=== PATIENT | female | born 1990 | race Caucasian/White ===

== ENCOUNTER 2017-02-07 08:53 | Emergency (ER) | payer BC ==
[2017-02-07] MEDS ORDERED: LIDOCAINE 1%/EPINEPHRINE INJ 20 ML VIAL INJ ONE (09:46)
--- NOTE | 2017-02-07 09:48 | ER Document Report ---
ED General - General Chief Complaint: Abscess Stated Complaint: POSSIBLE ABSCESS Time seen by provider: 09:46 Mode of Arrival: Ambulatory Information source: Patient Notes: This is a 26-year-old female with no prior medical problems who presents to the emergency room with pain and swelling to the right axilla. Patient denies fever , chills, nausea vomiting. TRAVEL OUTSIDE OF THE [place] IN LAST 30 DAYS: No - HPI Onset: Last week Onset/Duration: Gradual Quality of pain: Dull Severity: Moderate Pain Level: 3 Associated symptoms: denies: Chills, Fever Exacerbated by: Denies Relieved by: Denies Similar symptoms previously: No Recently seen / treated by doctor: No - Related Data Allergies/Adverse Reactions: Penicillins Adverse Reaction (Verified 02/07/17 09:01) Past Medical History - General Information source: Patient - Social History Smoking Status: Current Every Day Smoker Cigarette use (# per day): Yes - half pack per day Chew tobacco use (# tins/day): No Frequency of alcohol use: None Drug Abuse: None Lives with: Family Family History: Reviewed & Not Pertinent Patient has suicidal ideation: No Patient has homicidal ideation: No - Medical History Medical History: Negative Renal/ Medical History: Denies: Hx Peritoneal Dialysis Past Surgical History: Reports: Hx Section - x1 - Immunizations Hx Diphtheria, Pertussis, Tetanus Vaccination: Yes Review of Systems - Review of Systems Constitutional: denies: Chills, Fever EENT: No symptoms reported Cardiovascular: No symptoms reported Respiratory: No symptoms reported Gastrointestinal: No symptoms reported Genitourinary: No symptoms reported Female Genitourinary: No symptoms reported Musculoskeletal: No symptoms reported Skin: See HPI Hematologic/Lymphatic: No symptoms reported Neurological/Psychological: No symptoms reported Physical Exam - Vital signs Vitals: Temp Pulse Resp BP Pulse Ox 98.3 F 110 H 20 145/91 H 97 02/07/17 08:58 02/07/17 08:58 02/07/17 08:58 02/07/17 08:58 02/07/17 08:58 Notes: Physical exam: GENERAL: HEAD: Atraumatic, normocephalic. EYES: Pupils equal round and reactive to light, extraocular movements intact, sclera anicteric, conjunctiva are normal. ENT: TMs normal, nares patent, oropharynx clear without exudates. Moist mucous membranes. NECK: Normal range of motion, supple without lymphadenopathy Axilla: Patient has tender area of erythema and mild fluctuance which appears superficial in the right axilla. There is no overlying cellulitis. LUNGS: Breath sounds clear to auscultation bilaterally and equal. No wheezes rales or rhonchi. HEART: Regular rate and rhythm without murmurs, rubs or gallops. ABDOMEN: Soft, normoactive bowel sounds. No tenderness to palpation. No guarding, no rebound. No masses appreciated. EXTREMITIES: Normal range of motion, no pitting or edema. No clubbing or cyanosis. NEUROLOGICAL: Cranial nerves II through XII grossly intact. Normal speech, normal gait. PSYCH: Normal mood, normal affect. SKIN: Mentioned above under the axilla exam. Course - Vital Signs Vital signs: Temp Pulse Resp BP Pulse Ox 97.6 F 81 16 130/80 H 100 02/07/17 11:34 02/07/17 11:34 02/07/17 11:34 02/07/17 11:34 02/07/17 11:34 Procedures - Incision and Drainage axilla Time completed: 11:08 Type: Simple Anesthetic type: 1% Lidocaine mL's of anesthetic: 4 Blade size: 11 I&D procedure: Betadine prep applied, Chlorprep applied, Iodoform packing placed Incision Method: Incision made by scalpel Amount/type of drainage: blood and pus liberated (small amount) Discharge - Discharge Clinical Impression: hidradenitis, Pre-hypertension Condition: Stable Disposition: HOME, SELF-CARE Instructions: Abscess ([facility]), Oral Narcotic Medication ([facility]), Trimethoprim- Sulfa ([facility]) Additional Instructions: Recommendations: Take the pain medicine as needed. See the narcotic instruction sheet. Take antibiotics as prescribed. Take the nausea medicine as needed. If the packing has not fallen out in the shower after 2 days, return to the emergency room for removal removal of the packing. Alternatively, you can just pull on the end of the packing and it will come out (he will not be significantly painful). You can shower, use Hibiclens soap (served at [facility] and most pharmacies) to clean under it needs armpits. Return to the emergency room for increasing pain, redness, swelling or any concerns he getting worse. Regarding Blood Pressure: Your blood pressure was noted to be greater than 120/80 at least once in the emergency room today. It is recommended that you follow-up with her primary care physician in the next week for repeat blood pressure check. The Centers for Medicare and Medicaid Services has specific recommendations regarding a person's blood pressure. There are several lifestyle modifications that are recommended in order to help lower your blood pressure. These include: Quitting smoking if you smoke. Reducing the amount of sodium in your diet. Getting regular exercise Limiting alcohol to no more than 2 drinks a day for men and one drink a day for women. Eating a healthy diet, including more fruits and vegetables, low fat dairy products, less saturated and total fat. Losing weight if you are overweight. FOLLOW-UP: Call your doctor's office and let them know your blood pressure was elevated and you were advised to get your blood pressure checked in the above time-line. If you are unable to get into your doctor's office in this time period, you can follow-up with a new physician (I have left the numbers below for a few primary care doctors affiliated with this [facility]) or return to the ER. PRIMARY CARE PHYSICIANS: Dr. Serge Schroeder [address], [place] [address] [phone] Dr Maynard Address: [address] , [place] [address] Dr Meyer Address: [address] [place] [address] , [place] [address] The pain medicine you're taking prescribed as a narcotic. There are several important things you should know about this medicine: 1. This medicine contains Tylenol: It is important that you do not take Tylenol (or acetaminophen) while on this medicine. Tylenol is metabolized by the liver and taking too much Tylenol (acetaminophen) can lay to liver damage and even liver failure. 2. Taking narcotics for too long can lead to physical and mental dependence. Take this medicine only if really needed and in the lowest quantity to achieve pain relief. 3. Do not drink alcohol while on this medicine. Alcohol interacts with narcotics and the combination can be dangerous. 4. Do not drive or operate machinery while on this medicine. 5. Narcotics do cause constipation, so drink plenty of fluids and daily stool softeners. Prescriptions: Oxycodone HCl/Acetaminophen [Percocet 5-325 mg Tablet] 1 - 2 tab PO ASDIR PRN # 25 tablet PRN Reason: Promethazine HCl [Phenergan 25 mg Tablet] 25 mg PO Q6H PRN #15 tablet PRN Reason: Sulfamethoxazole/Trimethoprim [Bactrim Ds Tablet] 1 each PO BID #20 tablet Forms: Follow-Up (Wound) Referrals: CELY WATSON MD [Primary Care Provider] - Follow up as needed
[2017-02-07] MEDS ORDERED: LIDOCAINE 1% INJ-PF (10 MG/ML) 30 ML SDV ONE (10:11)
[2017-02-07] MEDS ORDERED: SULFAMETHOXAZOLE/TRIMETHOPRIM 800-160 MG TABLET PO ONE (11:10)
[2017-02-07] MEDS ORDERED: OXYCODONE-ACETAMINOPHEN 5-325 MG TABLET PO ONE (11:10)
[2017-02-07 11:35] VITALS: BP 130/80
== END 2017-02-07 11:35 | disposition home or self-care (01) ==
LOC: ER 08:53
PROC: 0H9BXZZ Drainage of Right Upper Arm Skin, External Approach (ICD-10-PCS; principal; 2017-02-07)
DX: L73.2 Hidradenitis suppurativa (principal); R03.0 Elevated blood-pressure reading, without diagnosis of hypertension; F17.210 Nicotine dependence, cigarettes, uncomplicated; Z88.0 Allergy status to penicillin
CPT/HCPCS: 87070; 87077; 87186; 87205; 99283

== ENCOUNTER 2017-04-17 15:01 | Emergency (ER) | payer BC, OTHER ==
[2017-04-17] MEDS ORDERED: ACETAMINOPHEN 325 MG TABLET PO ONE (16:46)
[2017-04-17] MEDS ORDERED: TRAMADOL HCL 50 MG TABLET PO ONE (17:55)
--- NOTE | 2017-04-17 17:59 | ER Document Report ---
HPI - HPI Patient complains to provider of: fall, left hip pain Onset: This morning Onset/Duration: Sudden Quality of pain: Achy Severity: Severe Pain Level: 5 Associated Symptoms: Weakness Exacerbated by: Movement, Walking Relieved by: Supine Similar symptoms previously: No Recently seen / treated by doctor: No - REPRODUCTIVE Reproductive: DENIES: : - DERM Skin Color: Normal Past Medical History - General Information source: Patient - Social History Smoking Status: Current Every Day Smoker Chew tobacco use (# tins/day): No Frequency of alcohol use: None Drug Abuse: None Family History: Reviewed & Not Pertinent Patient has suicidal ideation: No Patient has homicidal ideation: No Renal/ Medical History: Denies: Hx Peritoneal Dialysis Past Surgical History: Reports: Hx Section - x1 - Immunizations Hx Diphtheria, Pertussis, Tetanus Vaccination: Yes Vertical Provider Document - CONSTITUTIONAL Agree With Documented VS: Yes Exam Limitations: No Limitations General Appearance: WD/WN, No Apparent Distress - INFECTION CONTROL TRAVEL OUTSIDE OF THE [place] IN LAST 30 DAYS: No - HEENT HEENT: Atraumatic, Normal ENT Exam, Normocephalic - NECK Neck: Normal Inspection, Other - full rom. negative: Lymphadenopathy-Left, Lymphadenopathy-Right - RESPIRATORY Respiratory: Breath Sounds Normal, No Respiratory Distress, Chest Non-Tender O2 Sat by Pulse Oximetry: 99 - CARDIOVASCULAR Cardiovascular: Regular Rate, Regular Rhythm, No Murmur Pulses: Normal: Radial, Dorsalis pedis - BACK Back: Normal Inspection Notes: Palpation, process tenderness, deformity, step-offs or ecchymosis - MUSCULOSKELETAL/EXTREMETIES Musculoskeletal/Extremeties: MAEW, Tender - left hip and thigh - NEURO Level of Consciousness: Awake, Alert, Appropriate Motor/Sensory: No Motor Deficit, No Sensory Deficit Course - Re-evaluation Re-evalutation: 04/17/17 20:05 No evidence of fracture on x-ray. Patient able to bear weight. Discharge home. - Vital Signs Vital signs: Temp Pulse Resp BP Pulse Ox 98.1 F 95 20 142/95 H 99 04/17/17 15:07 04/17/17 15:07 04/17/17 15:07 04/17/17 15:07 04/17/17 15:07 - Diagnostic Test Radiology reviewed: Image reviewed, Reports reviewed Discharge - Discharge Clinical Impression: Left hip pain Condition: Good Disposition: HOME, SELF-CARE Additional Instructions: MUSCLE STRAIN: You have strained a muscle -- torn the fibers within the muscle. This often occurs with strenuous exertion, or during an injury that suddenly stretches the muscle. The seriousness of a strain varies. Some strains heal within days, others cause problems for months. X-rays cannot show a muscle strain. X-rays are taken only if symptoms suggest that a fracture could be present. The usual treatment of a muscle strain is rest and ice packs. Sometimes, a sling, splint, or crutches may be necessary to rest the muscle. The muscle can be used again once pain subsides. Severe strains require a special exercise and stretching program to prevent permanent stiffness and disability. Your doctor will advise you if this will be necessary. Call the doctor immediately if pain or swelling becomes severe, or if numbness or discoloration develop. CONTUSION: Your injury has resulted in a contusion -- a crushing of the deep tissues. No injury to important structures was detected during the physician's exam. Contusions vary in the amount of pain they cause, and in the length of time required for healing. Typically, the area will become bruised, and will remain painful to touch for two or three weeks. However, most patients are back to working and playing within a few days. After the initial period of rest and cold-packs, your symptoms (together with the doctor's recommendations) will determine how rapidly you can get back to full activity. Usually this means "do what feels okay, but don't do things that hurt." If re-examination was recommended, it's important to follow up as instructed. Call the doctor or return any time if pain increases, if swelling becomes severe, if you develop numbness or weakness in an injured extremity, or if any other alarming symptoms occur. LOW BACK PAIN: Three out of every four people will have an episode of disabling back pain during their lifetime. Most commonly the pain is due to straining of the muscles and ligaments in the low back. Usual treatment includes: (1) Rest on a firm surface. Avoid lying on your stomach. (2) Ice pack the painful area. After a few days, gentle heat may be used intermittently to relax the area, or ice packs can be continued. (3) Medication may be needed -- muscle relaxers and antiinflammatory medicines are commonly used. (4) As the back improves, exercises are prescribed to strengthen the back and abdominal muscles. Your doctor will advise you on the proper care for your back at each stage in your recovery. You may be better in a few days -- or healing may take several weeks. If new symptoms of a "herniated disc" (radiation of pain, numbness, or tingling down the back of the leg or weakness in the leg) occur, you should be re-examined. Further testing may be necessary. USE OF TYLENOL (ACETAMINOPHEN): Acetaminophen may be taken for pain relief or fever control. It's much safer than aspirin, offering a wider range of "safe" dosages. It is safe during . Some brand names are Tylenol, Panadol, Datril, Anacin 3, Tempra, and Liquiprin. Acetaminophen can be repeated every four hours. The following are maximum recommended dosages: WEIGHT Dose Drops Elixir Chewable( 80mg) (LBS.) drprs=droppers tsp=teaspoon 6 40 mg 0.4 ml (1/2) 6-11 80 mg 0.8 ml (full) tsp 1 tab 12-16 120 mg 1 1/2 drprs 3/4 tsp 1 1/2 tabs 17-23 160 mg 2 drprs 1 tsp 2 tabs 24-30 240 mg 3 drprs 1 1/2 tsp 3 tabs 30-35 320 mg 2 tsp 4 tabs 36-41 360 mg 2 1/4 tsp 4 1/2 tabs 42-47 400 mg 2 1/2 tsp 5 tabs 48-53 480 mg 3 tsp 6 tabs 54-59 520 mg 3 1/4 tsp 6 1/2 tabs 60-64 560 mg 3 1/2 tsp 7 tabs 65-70 600 mg 3 3/4 tsp 7 1/2 tabs 71-76 640 mg 4 tsp 8 tabs 77-82 720 mg 4 1/2 tsp 9 tabs 83-88 800 mg 5 tsp 10 tabs >89 pounds or adults 650 mg to 900 mg Acetaminophen can be repeated every four hours. Maximum dose not to exceed 4000 mg a day. These maximum recommended dosages are slightly higher than the dosages written on the product container, but these dosages are very safe and below the toxic dosage for acetaminophen. FOLLOW-UP CARE: If you have been referred to a physician for follow-up care, call the physician s office for an appointment as you were instructed or within the next two days. If you experience worsening or a significant change in your symptoms, notify the physician immediately or return to the Emergency Department at any time for re-evaluation. Prescriptions: Tramadol HCl 50 mg PO Q6HP PRN #15 tablet PRN Reason: Ibuprofen [Motrin 800 mg Tablet] 800 mg PO Q8H PRN #30 tab PRN Reason: Forms: Elevated Blood Pressure, Return to Work Referrals: [facility] [NO LOCAL MD] - Follow up as needed
[2017-04-17 18:08] VITALS: BP 131/84
== END 2017-04-17 18:20 | disposition home or self-care (01) ==
LOC: ER 15:01
DX: M25.552 Pain in left hip (principal); R53.1 Weakness; F17.200 Nicotine dependence, unspecified, uncomplicated
CPT/HCPCS: 99283

== ENCOUNTER 2017-06-23 13:29 | Emergency (ER) | payer BC ==
[2017-06-23] MEDS ORDERED: FAMOTIDINE 20 MG TABLET PO ONE (14:08)
[2017-06-23] MEDS ORDERED: PREDNISONE 20 MG TABLET PO ONE (14:08)
[2017-06-23] MEDS ORDERED: LORATADINE 10 MG TABLET PO ONE (14:08)
[2017-06-23 14:33] LABS: ABSOLUTE BASOPHILS # (AUTO) 0.1 10^3/uL (0.0-0.2); ABSOLUTE EOSINOPHILS # (AUTO) 0.2 10^3/uL (0.0-0.6); ABSOLUTE LYMPHOCYTES (AUTO) 3.1 10^3/uL (0.5-4.7); ABSOLUTE MONOCYTES (AUTO) 0.7 10^3/uL (0.1-1.4); ABSOLUTE NEUT (AUTO) 6.9 10^3/uL (1.7-8.2); BASOPHILS % (AUTO) 1.2 % (0-2); EOSINOPHILS % (AUTO) 1.8 % (0-6); HEMATOCRIT 40.8 % (36.0-47.0); HEMOGLOBIN 14.1 g/dL (12.0-15.5); HGB HCT DIFFERENCE 1.5; MEAN CORPUSCULAR HEMOGLOBIN 30.2 pg (27.0-33.4); MEAN CORPUSCULAR HGB CONC 34.5 g/dL (32.0-36.0); MEAN CORPUSCULAR VOLUME 87 fl (80-97); MONOCYTES % (AUTO) 6.1 % (3-13); RED BLOOD COUNT 4.66 10^6/uL (3.72-5.28); RED CELL DISTRIBUTION WIDTH 13.3 % (11.5-14.0); SEGMENTED NEUTROPHILS % (AUTO) 62.9 % (42-78); WHITE BLOOD COUNT 10.9 10^3/uL (4.0-10.5)
[2017-06-23 14:35] LABS: APPEARANCE,URINE SLIGHTLY-CLOUDY; BILIRUBIN,URINE NEGATIVE (NEGATIVE); GLUCOSE, URINE NEGATIVE (NEGATIVE); KETONES,URINE NEGATIVE (NEGATIVE); LEUKOCYTE ESTERASE,URINE LARGE (NEGATIVE); NITRITE,URINE NEGATIVE (NEGATIVE); PROTEIN,URINE NEGATIVE (NEGATIVE); URINE SPECIFIC GRAVITY 1.014; UROBILINOGEN,URINE NEGATIVE mg/dL (<2.0)
[2017-06-23 14:42] LABS: ALANINE AMINOTRANSFERASE 43 U/L (9-52); ALBUMIN 4.4 g/dL (3.5-5.0); ALKALINE PHOSPHATASE 100 U/L (38-126); ANION GAP 12 (5-19); ASPARTATE AMINO TRANSFERASE 26 U/L (14-36); BILIRUBIN,DIRECT 0.3 mg/dL (0.0-0.4); BILIRUBIN,TOTAL 0.4 mg/dL (0.2-1.3); BLOOD UREA NITROGEN 11 mg/dL (7-20); CALCIUM 9.4 mg/dL (8.4-10.2); CARBON DIOXIDE 25 mmol/L (22-30); CHLORIDE 103 mmol/L (98-107); CREATININE RESULT 0.61 mg/dL (0.52-1.25); GLUCOSE 78 mg/dL (75-110); POTASSIUM 4.2 mmol/L (3.6-5.0); SODIUM 139.7 mmol/L (137-145); TOTAL PROTEIN 7.6 g/dL (6.3-8.2)
--- NOTE | 2017-06-23 15:15 | ER Document Report ---
HPI - HPI Patient complains to provider of: Allergic reaction, SOB Onset: This morning Onset/Duration: Sudden Severity: Moderate Pain Level: 4 Context: Patient states she was started on Provera yesterday. States she woke up this morning feeling short of breath, disoriented, and lower abdominal pain. Denies fever, no nausea, vomiting or diarrhea. Denies headache. Patient does state she has had frequency with urination for a couple of days. Associated Symptoms: Shortness of breath Exacerbated by: Denies Relieved by: Denies Similar symptoms previously: No Recently seen / treated by doctor: Yes - ROS ROS below otherwise negative: Yes Systems Reviewed and Negative: Yes All other systems reviewed and negative - CONSTITUTIONAL Constitutional: DENIES: Fever - EENT EENT: DENIES: Congestion - NEURO Neurology: DENIES: Headache - CARDIOVASCULAR Cardiovascular: DENIES: Chest pain - RESPIRATORY Respiratory: REPORTS: Trouble Breathing - GASTROINTESTINAL Gastrointestinal: REPORTS: Abdominal Pain. DENIES: Nausea - URINARY Urinary: REPORTS: Dysuria, Frequency - REPRODUCTIVE Reproductive: DENIES: : - MUSCULOSKELETAL Musculoskeletal: DENIES: Extremity pain - DERM Skin Color: Normal Skin Problems: None Past Medical History - General Information source: Patient - Social History Smoking Status: Current Every Day Smoker Frequency of alcohol use: None Drug Abuse: None Lives with: Family Family History: Reviewed & Not Pertinent Patient has suicidal ideation: No Patient has homicidal ideation: No - Medical History Medical History: Negative Past Surgical History: Reports: Hx Section - x1 - Immunizations Hx Diphtheria, Pertussis, Tetanus Vaccination: Yes Vertical Provider Document - CONSTITUTIONAL Agree With Documented VS: Yes General Appearance: WD/WN, No Apparent Distress - INFECTION CONTROL TRAVEL OUTSIDE OF THE [place] IN LAST 30 DAYS: No - HEENT HEENT: Atraumatic, Normocephalic - RESPIRATORY Respiratory: Breath Sounds Normal, No Respiratory Distress - CARDIOVASCULAR Cardiovascular: Regular Rate, Regular Rhythm - GI/ABDOMEN Gastrointestinal: Abdomen Soft, Abdomen Tender - Suprapubic across to right groin area, Normal Bowel Sounds - BACK Back: negative: CVA Tenderness-Right, CVA Tenderness-Left - MUSCULOSKELETAL/EXTREMETIES Musculoskeletal/Extremeties: ARIADNA HUMPHRIES - NEURO Level of Consciousness: Awake, Alert, Appropriate - DERM Integumentary: Warm, Dry Course - Re-evaluation Re-evalutation: 06/23/17 15:32 Discussed lab results and physical exam with patient. Patient made aware that urine culture takes 3 days to return. Patient instructed to return to the emergency room immediately for any shortness of breath, difficulty breathing. - Laboratory Result Diagrams: 06/23/17 14:20 06/23/17 14:20 Laboratory results interpreted by me: 06/23/17 06/23/17 14:20 14:20 WBC 10.9 H Ur Leukocyte Esterase LARGE H Discharge - Discharge Clinical Impression: Shortness of breath, Bacteria in urine Additional Instructions: Take antibiotics as prescribed, urine culture pending. motrin for pain, tramadol as needed Push fluids OTC Benadryl every 4-6 hours along with OTC Pepcid 20 mg every 12 hours for itching or other allergic symptoms You have already been given a dose of prednisone today, begin remainder of prescription tomorrow. Return to emergency room immediately if shortness of breath or other allergic symptoms occur Stop Provera until you can see your doctor tomorrow Prescriptions: Prednisone [Deltasone 10 mg Tablet] 10 mg PO ASDIR PRN #15 tablet PRN Reason: Sulfamethoxazole/Trimethoprim [Bactrim Ds Tablet] 1 each PO BID #6 tablet Forms: Return to Work Referrals: CELY WATSON MD [Primary Care Provider] - Follow up as needed
[2017-06-23] MEDS ORDERED: HYDROCODONE/ACETAMINOPHEN 5-325 MG TABLET PO ONE (15:18)
[2017-06-23 15:41] VITALS: BP 143/70
== END 2017-06-23 15:40 | disposition home or self-care (01) ==
LOC: ER 13:29
DX: R06.02 Shortness of breath (principal); R82.71 Bacteriuria; F17.200 Nicotine dependence, unspecified, uncomplicated
CPT/HCPCS: 99283; 36415; 87086; 84702; 85025; 80053; 81001; J7512

== ENCOUNTER 2017-07-01 10:31 | Emergency (ER) | payer BC ==
--- NOTE | 2017-07-01 11:07 | ER Document Report ---
ED Medical Screen (RME) - General Chief Complaint: Vaginal Discharge Stated Complaint: VAGINAL BLEEDING Time Seen by Provider: 07/01/17 11:04 Notes: Patient presents with severe right lower quadrant abdominal pain. Is also had heavy vaginal bleeding and clots. Patient states approximate 1 week ago she was diagnosed with polycystic ovarian disease by her doctor. Her doctor started her on Provera that day. She had to come here the following day for an allergic reaction that consisted of trouble breathing. Provera was stopped and she was placed on steroids she has had no further problems with breathing. He states that her CCTV TECHNICIAN told her today that she may need a D&C and she was to go to the emergency department. TRAVEL OUTSIDE OF THE [place] IN LAST 30 DAYS: No - Related Data Allergies/Adverse Reactions: medroxyprogesterone [From Provera] Allergy (Severe, Verified 07/01/17 10:37) Difficulty breathing Penicillins Adverse Reaction (Verified 06/23/17 13:39) Past Medical History Renal/ Medical History: Denies: Hx Peritoneal Dialysis Past Surgical History: Reports: Hx Section - x1 - Immunizations Hx Diphtheria, Pertussis, Tetanus Vaccination: Yes Physical Exam - Vital signs Vitals: Temp Pulse Resp BP Pulse Ox 98.8 F 107 H 20 168/89 H 100 07/01/17 10:35 07/01/17 10:35 07/01/17 10:35 07/01/17 10:35 07/01/17 10:35 Course - Vital Signs Vital signs: Temp Pulse Resp BP Pulse Ox 98.8 F 107 H 20 168/89 H 100 07/01/17 10:35 07/01/17 10:35 07/01/17 10:35 07/01/17 10:35 07/01/17 10:35
[2017-07-01] MEDS: NORMAL SALINE 1000 ML 1,000 ML IV PRN ×2 (11:52→12:14)
[2017-07-01 12:06] LABS: ABSOLUTE BASOPHILS # (AUTO) 0.1 10^3/uL (0.0-0.2); ABSOLUTE EOSINOPHILS # (AUTO) 0.2 10^3/uL (0.0-0.6); ABSOLUTE LYMPHOCYTES (AUTO) 2.5 10^3/uL (0.5-4.7); ABSOLUTE MONOCYTES (AUTO) 0.8 10^3/uL (0.1-1.4); ABSOLUTE NEUT (AUTO) 8.2 10^3/uL (1.7-8.2); EOSINOPHILS % (AUTO) 1.6 % (0-6); HEMATOCRIT 40.7 % (36.0-47.0); HGB HCT DIFFERENCE 1.3; LYMPHOCYTES % (AUTO) 21.2 % (13-45); MEAN CORPUSCULAR HEMOGLOBIN 30.3 pg (27.0-33.4); MEAN CORPUSCULAR HGB CONC 34.4 g/dL (32.0-36.0); MEAN CORPUSCULAR VOLUME 88 fl (80-97); MONOCYTES % (AUTO) 7.1 % (3-13); RED BLOOD COUNT 4.62 10^6/uL (3.72-5.28); RED CELL DISTRIBUTION WIDTH 13.3 % (11.5-14.0); SEGMENTED NEUTROPHILS % (AUTO) 69.1 % (42-78); WHITE BLOOD COUNT 11.9 10^3/uL (4.0-10.5)
[2017-07-01 12:27] LABS: ALANINE AMINOTRANSFERASE 44 U/L (9-52); ALBUMIN 4.3 g/dL (3.5-5.0); ALKALINE PHOSPHATASE 102 U/L (38-126); ANION GAP 11 (5-19); ASPARTATE AMINO TRANSFERASE 42 U/L (14-36); BILIRUBIN,DIRECT 0.4 mg/dL (0.0-0.4); BILIRUBIN,TOTAL 0.5 mg/dL (0.2-1.3); BLOOD UREA NITROGEN 15 mg/dL (7-20); CALCIUM 9.3 mg/dL (8.4-10.2); CARBON DIOXIDE 23 mmol/L (22-30); CHLORIDE 105 mmol/L (98-107); GLUCOSE 90 mg/dL (75-110); POTASSIUM 4.4 mmol/L (3.6-5.0); SODIUM 138.5 mmol/L (137-145); TOTAL PROTEIN 7.8 g/dL (6.3-8.2)
--- NOTE | 2017-07-01 12:53 | ER Document Report ---
HPI - HPI Pain Level: 5 Notes: Patient is a 26-year-old female presents the ED complaining of lower right pelvic cramping, pain, and vaginal bleeding 1 day. Patient states that her bleeding has been heavy and has been bleeding through a pad/tampon every hour. Patient states that she was diagnosed with PCO S last week and was started on Provera at which point she had a suspected allergic reaction to medication and was evaluated in the ED. She was placed on antibiotics, prednisone, and had her Provera discontinued. Patient is seen by the [facility] clinic who directed her to come to the ED for a possible D&C. Patient states that she did take a urine test last week which was negative. She denies any recent sexual activity in the last several weeks. Patient states that she is still able to eat and drink without any problems. Patient denies any other daily medications. Past medical history significant for a and one in the past. Patient states she has been twice and has 1 child. Denies any headache, fever, URI, sore throat, chest pain, palpitations, syncope , cough, shortness of breath, wheeze, dyspnea, upper abdominal pain, nausea/ vomiting/diarrhea, urinary retention, dysuria, hematuria, loss of control of bowel or bladder, numbness/tingling, or rash. Denies any recent travel, hospitalization, illness, or sick contacts. - ROS Notes: REVIEW OF SYSTEMS: CONSTITUTIONAL : Denies fever, chills, or sweats. Denies recent illness. EENT: Denies eye, ear, throat, or mouth pain or symptoms. Denies nasal or sinus congestion or discharge. Denies throat, tongue, or mouth swelling or difficulty swallowing. CARDIOVASCULAR: Denies chest pain. Denies palpitations or racing or irregular heart beat. Denies ankle edema. RESPIRATORY: Denies cough, cold, or chest congestion. Denies shortness of breath, difficulty breathing, or wheezing. GASTROINTESTINAL: see hpi GENITOURINARY: Denies difficulty urinating, painful urination, burning, frequency, blood in urine, or discharge. FEMALE GENITOURINARY: see hpi MUSCULOSKELETAL: Denies back or neck pain or stiffness. Denies joint pain or swelling. SKIN: Denies rash, lesions or sores. NEUROLOGICAL: Denies confusion or altered mental status. Denies passing out or loss of consciousness. Denies dizziness or lightheadedness. Denies headache. Denies weakness or paralysis or loss of use of either side. Denies problems with gait or speech. Denies sensory loss, numbness, or tingling. ALL OTHER SYSTEMS REVIEWED AND NEGATIVE. Dictation was performed using [employer] voice recognition software - REPRODUCTIVE Reproductive: DENIES: : - DERM Skin Color: Normal, [place] Past Medical History - Social History Smoking Status: Current Every Day Smoker Chew tobacco use (# tins/day): No Frequency of alcohol use: None Drug Abuse: None Family History: Reviewed & Not Pertinent Patient has suicidal ideation: No Patient has homicidal ideation: No Renal/ Medical History: Denies: Hx Peritoneal Dialysis Past Surgical History: Reports: Hx Section - x1 - Immunizations Hx Diphtheria, Pertussis, Tetanus Vaccination: Yes Vertical Provider Document - CONSTITUTIONAL Agree With Documented VS: Yes Notes: PHYSICAL EXAMINATION: GENERAL: Well-appearing, well-nourished and in no acute distress. HEAD: Atraumatic, normocephalic. EYES: Pupils equal round and reactive to light, extraocular movements intact, sclera anicteric, conjunctiva are normal. ENT: EAC clear b/l. TM's intact b/l without erythema, fluid, or perforation. Nares patent and without discharge. oropharynx clear without exudates. No tonsilar hypertrophy or erythema. Moist mucous membranes. No sinus tenderness. NECK: Normal range of motion, supple without lymphadenopathy LUNGS: Breath sounds clear to auscultation bilaterally and equal. No wheezes rales or rhonchi. HEART: Regular rate and rhythm without murmurs, rubs, gallops. ABDOMEN: Soft, nondistended abdomen. no rebound, + mild guarding RLQ. No masses appreciated. Normal bowel sounds present. No CVA tenderness bilaterally. + tenderness to palpation of RLQ/pelvic. No inguinal adenopathy, mass, or tenderness. Female : No inguinal adenopathy. External genitalia without erythema, lesions , or masses. Vaginal mucosa pink. Cervix parous, pink, and with bloody discharge. Blood throughout the vaginal canal. Uterus is smooth. + rt adnexal tenderness which corresponds to patient's described pain. Musculoskeletal: LE's b/l: FROM to passive/active. Strength 5+/5. Extremities: No cyanosis, clubbing, or edema b/l. Peripheral pulses 2+. Capillary refill less than 3 seconds. NEUROLOGICAL: Normal speech, normal gait. Normal sensory, motor exams PSYCH: Normal mood, normal affect. SKIN: Warm, Dry, normal turgor, no rashes or lesions noted. - INFECTION CONTROL TRAVEL OUTSIDE OF THE [place] IN LAST 30 DAYS: No - RESPIRATORY O2 Sat by Pulse Oximetry: 100 Course - Re-evaluation Re-evalutation: 07/01/17 16:05 Patient is an afebrile, well-hydrated, 26-year-old female who presents the ED with vaginal bleeding and right lower pelvic pain not otherwise specified. Vitals are stable. PE otherwise unremarkable. Wet mount yielded trichomonas infection. Urine preg negative. CBC showed a mildly elevated white count at 11.9 which corresponds to the trich infection. CMP unremarkable. Patient was given 250 mg Rocephin IM along with 1 g Zithromax p.o. prior to results of the chlam/kevon which ended up being negative. Recommend patient get an eval done with the health department as well. Low suspicion for an ectopic , appendicitis, acute abdomen, ovarian torsion, or tubo-ovarian abscess. Conservative measures as reviewed in discharge. Advised recheck with her PCM and OB-FINANCIAL SALES REPRESENTATIVE in 2-3 days. Return to the ED with any worsening/concerning symptoms otherwise as reviewed discharge. Patient is in agreement. Reviewed with Dr. Boston who is in agreement with discharge/plan. - Vital Signs Vital signs: Temp Pulse Resp BP Pulse Ox 98.8 F 107 H 20 168/89 H 100 07/01/17 10:35 07/01/17 10:35 07/01/17 10:35 07/01/17 10:35 07/01/17 10:35 - Laboratory Result Diagrams: 07/01/17 11:50 07/01/17 11:50 Laboratory results interpreted by me: 07/01/17 07/01/17 11:50 11:50 WBC 11.9 H AST 42 H Procedures - Pelvic Exam Pelvic exam Time completed: 14:10 Cultures obtained: Yes Wet prep obtained: Yes Herpes culture obtained: No Foreign body removed: No Bimanual exam performed: Yes Witnessed by: PCT (Female) Discharge - Discharge Clinical Impression: Trichomoniasis, Vaginal bleeding Condition: Stable Disposition: HOME, SELF-CARE Instructions: Trichomonas Infection ([facility]), Metronidazole ([facility]), Pelvic Pain ( [facility]) Additional Instructions: Take medications as directed Tylenol/ibuprofen as needed Avoid alcohol use as directed while taking Flagyl Avoid any sexual contact for 1 week after finishing medication Have any sexual contacts treated as well recheck with your PCM in 2-3 days Recheck with your MANAGER EMS in 2-3 days Return to the ED with any worsening symptoms and/or development of fever, headache, chest pain, palpitations, syncope, shortness of breath, trouble breathing, abdominal pain, n/v/d, blood in stool/urine, loss of control of bowel /bladder, urinary retention, muscle weakness/paralysis, numbness/tingling, or other worsening symptoms that are concerning to you. Prescriptions: Metronidazole [Flagyl 500 mg Tablet] 500 mg PO BID #14 tablet Forms: Elevated Blood Pressure, Smoking Cessation Education, Return to Work Referrals: CELY WATSON MD [Primary Care Provider] - Follow up in 3-5 days
[2017-07-01 13:12] LABS: APPEARANCE,URINE SLIGHTLY-CLOUDY; BILIRUBIN,URINE NEGATIVE (NEGATIVE); GLUCOSE, URINE NEGATIVE (NEGATIVE); KETONES,URINE NEGATIVE (NEGATIVE); LEUKOCYTE ESTERASE,URINE MODERATE (NEGATIVE); NITRITE,URINE NEGATIVE (NEGATIVE); PROTEIN,URINE NEGATIVE (NEGATIVE); URINE SPECIFIC GRAVITY 1.012; UROBILINOGEN,URINE NEGATIVE mg/dL (<2.0)
[2017-07-01] MEDS ORDERED: CEFTRIAXONE INJ 1000 MG VIAL IM ONE (15:05)
[2017-07-01] MEDS ORDERED: AZITHROMYCIN 250 MG TABLET PO ONE (15:05)
[2017-07-01] MEDS ORDERED: KETOROLAC TROMETHAMINE INJ/PF 30 MG/1 ML SDV IV ONE (15:07)
--- NOTE | 2017-07-01 15:23 | RADIOLOGY REPORT (SQ) ---
EXAM DESCRIPTION: U/S NON OB PEL TV W/DOPPLER COMPLETED DATE/TIME: 07/01/2017 3:15 pm REASON FOR STUDY: Rt pelvic pain, vaginal bleeding, HCG neg COMPARISON: None. TECHNIQUE: Dynamic and static grayscale images acquired of the pelvis via transvaginal approach and recorded on PACS. Additional selected color Doppler and spectral images recorded. LIMITATIONS: None. FINDINGS: UTERUS: Contour normal. No mass. Slight heterogeneous appearance. ENDOMETRIAL STRIPE: No focal or generalized thickening. No masses. CERVIX: No nabothian cysts. RIGHT OVARY: No abnormal masses. RIGHT OVARY DOPPLER: Normal arterial vascular flow without evidence for torsion. LEFT OVARY: No abnormal masses. LEFT OVARY DOPPLER: Normal arterial vascular flow without evidence for torsion. FREE FLUID: None noted. OTHER: No other significant finding. MEASUREMENTS: UTERUS: 7.3 x 5.1 x 4.4 cm ENDOMETRIAL STRIPE: 8 mm RIGHT OVARY: 3.0 x 2.1 x 1.8 cm LEFT OVARY: 2.7 x 2.0 x 1.8 cm. IMPRESSION: NORMAL TRANSVAGINAL PELVIC ULTRASOUND. TECHNICAL DOCUMENTATION: JOB ID: [id number]- All Rights Reserved
[2017-07-01 15:38] LABS: CHLAM PCR NOT DETECTED (NOT DETECT)
[2017-07-01 17:03] VITALS: BP 127/90
== END 2017-07-01 17:02 | disposition home or self-care (01) ==
LOC: ER 10:31
DX: A59.00 Urogenital trichomoniasis, unspecified (principal); E28.2 Polycystic ovarian syndrome; N93.9 Abnormal uterine and vaginal bleeding, unspecified; R10.2 Pelvic and perineal pain; F17.200 Nicotine dependence, unspecified, uncomplicated
CPT/HCPCS: 99284; 96372; 96361; 96374; 36415; 87210; 85025; 81025; 80053; 81001; 87491; 87591; 76830; 93976; J1885; J0696; J7030

== ENCOUNTER 2018-02-23 09:26 | Emergency (ER) | payer BC ==
[2018-02-23] MEDS ORDERED: OXYCODONE-ACETAMINOPHEN 5-325 MG TABLET PO ONE ×2 (10:28→13:27)
--- NOTE | 2018-02-23 10:30 | ER Document Report ---
ED Medical Screen (RME) - General Chief Complaint: Groin Pain Stated Complaint: GROIN PAIN Time Seen by Provider: 02/23/18 10:23 Notes: RME DISCLOSURE I have seen this patient as part of a Rapid Medical Evaluation and, if applicable, placed any initially appropriate orders. The patient will be seen and fully evaluated, including a full history and physical exam, by a provider ( in Main ED or Fast Track) when a room becomes available. 27-year-old female here with complaints of enlarged lymph node in her right groin has been ongoing for several weeks. Ultrasound revealed the lymph node and this ultrasound was performed 2 weeks ago. The patient had incision and drainage of an abdominal wall abscess as well as clindamycin but the enlarged lymph node did not improve so the PCP ordered a CT scan approximately 6 days ago but the patient has not gotten the CT report yet. She states the [facility]. She does not know the results. She is here because the pain in her groin from the lymph node is severe. She has been taking Vicodin with some relief but does not have anymore. TRAVEL OUTSIDE OF THE [place] IN LAST 30 DAYS: No - Related Data Allergies/Adverse Reactions: medroxyprogesterone [From Provera] Allergy (Severe, Verified 02/23/18 09:28) Difficulty breathing Penicillins Adverse Reaction (Verified 02/23/18 09:28) Past Medical History - Social History Chew tobacco use (# tins/day): No Frequency of alcohol use: None Drug Abuse: None Renal/ Medical History: Denies: Hx Peritoneal Dialysis Past Surgical History: Reports: Hx Section - x1 - Immunizations Hx Diphtheria, Pertussis, Tetanus Vaccination: Yes Physical Exam - Vital signs Vitals: Temp Pulse Resp BP Pulse Ox 98.2 F 90 20 141/97 H 100 02/23/18 09:29 02/23/18 09:29 02/23/18 09:29 02/23/18 09:29 02/23/18 09:29 Course - Vital Signs Vital signs: Temp Pulse Resp BP Pulse Ox 98.2 F 90 20 141/97 H 100 02/23/18 09:29 02/23/18 09:29 02/23/18 09:29 02/23/18 09:29 02/23/18 09:29
--- NOTE | 2018-02-23 13:00 | ER Document Report ---
ED GI/ - General Chief Complaint: Groin Pain Stated Complaint: GROIN PAIN Time Seen by Provider: 02/23/18 10:23 Mode of Arrival: Ambulatory Notes: 27 yo female with hx PCOS c/o painful lymph node right groin that she has had for 3 weeks. Her MD is evaluating it but told her to come to ER. Finished clindamycin for BV, the node has not gotten any smaller. No fever. No other lymph node swelling. Started menses 3-17. spotting again today, did not realize it. TRAVEL OUTSIDE OF THE [place] IN LAST 30 DAYS: No - Related Data Allergies/Adverse Reactions: medroxyprogesterone [From Provera] Allergy (Severe, Verified 02/23/18 09:28) Difficulty breathing Penicillins Adverse Reaction (Verified 02/23/18 09:28) Past Medical History - General Information source: Patient - Social History Smoking Status: Current Every Day Smoker Chew tobacco use (# tins/day): No Frequency of alcohol use: None Drug Abuse: None Lives with: Family Family History: Reviewed & Not Pertinent Patient has suicidal ideation: No Patient has homicidal ideation: No Other: PCOS Renal/ Medical History: Denies: Hx Peritoneal Dialysis Past Surgical History: Reports: Hx Section - x1 - Immunizations Hx Diphtheria, Pertussis, Tetanus Vaccination: Yes Review of Systems - Review of Systems Constitutional: No symptoms reported EENT: No symptoms reported Cardiovascular: No symptoms reported Respiratory: No symptoms reported Gastrointestinal: No symptoms reported Genitourinary: No symptoms reported Female Genitourinary: See HPI Musculoskeletal: No symptoms reported Skin: No symptoms reported Hematologic/Lymphatic: No symptoms reported Neurological/Psychological: No symptoms reported Physical Exam - Vital signs Vitals: Temp Pulse Resp BP Pulse Ox 98.2 F 90 20 141/97 H 100 02/23/18 09:29 02/23/18 09:29 02/23/18 09:29 02/23/18 09:29 02/23/18 09:29 Interpretation: Normal - General General appearance: Appears well, Alert - HEENT Head: Normocephalic, Atraumatic Eyes: Normal Pupils: PERRL Tympanic membrane: Normal Neck: Supple. No: Lymphadenopathy, Thyromegally - Respiratory Respiratory status: No respiratory distress Chest status: Nontender Breath sounds: Normal Chest palpation: Normal - Cardiovascular Rhythm: Regular Heart sounds: Normal auscultation Murmur: No - Abdominal Inspection: Normal Distension: No distension Bowel sounds: Normal Tenderness: Nontender. No: Tender Organomegaly: No organomegaly - Genitourinary External exam: Normal, Other - Bilateral inguinal nodes right has a larger node on the left. Speculum exam: Cervix closed Vaginal bleeding: None - minimal blood Bimanuel exam: No: Cervical motion tender - Back Back: Normal, Nontender. No: CVA tenderness - Extremities General upper extremity: Normal inspection, Nontender, Normal color, Normal ROM , Normal temperature General lower extremity: Normal inspection, Nontender, Normal color, Normal ROM , Normal temperature, Normal weight bearing. No: Pearl's sign - Neurological Neuro grossly intact: Yes Cognition: Normal Orientation: AAOx4 [place] Coma Scale Eye Opening: Spontaneous Denis Coma Scale Verbal: Oriented [place] Coma Scale Motor: Obeys Commands [place] Coma Scale Total: 15 Speech: Normal Motor strength normal: LUE, RUE, LLE, RLE Sensory: Normal - Psychological Associated symptoms: Normal affect, Normal mood - Skin Skin Temperature: Warm Skin Moisture: Dry Skin Color: Normal Skin irregularity: negative: Rash Course - Re-evaluation Re-evalutation: 02/23/18 13:02 cbc drawn at 10:53 was never drawn. alerted charge nurse to get it drawn. 02/23/18 13:[address] scan shows bilateral inguinal adenopathy right greater than left. Bilateral iliac adenopathy right greater than left. large right pelvic sidewall node measuring 2.2 cm x 3.8 cm differentials considerations would include reactive adenopathy versus lymphoma or other neoplasm. This was ordered by Irma Cardona nurse practitioner and patient has not been given these results yet. 02/23/18 13:37 3-14 clindamycin, 3-19 doxycycline 100mg bid for 10 days (not taking). spoke with Irma Beaulieu who will [facility]. She wanted the pt. to go. 02/23/18 15:22 Conversation and consult with Dr. Manuel Mckoy over the phone and he agrees that oncology would be a good place for her to be referred to. I spoke with the patient about that and she will follow up with Irma for the referral that she wanted to give her. GC and Chlamydia were negative. I have treated her with Rocephin and azithromycin because the results had not been back. Patient understands the conversations and I gave her the 3 oncologist to follow-up within this area and all the labs/imaging done in the ER. - Vital Signs Vital signs: Temp Pulse Resp BP Pulse Ox 98.2 F 99 18 139/77 H 100 02/23/18 15:38 02/23/18 15:38 02/23/18 15:38 02/23/18 15:38 02/23/18 15:38 - Laboratory Result Diagrams: 02/23/18 13:20 Discharge - Discharge Clinical Impression: Pelvic lymphadenopathy Condition: Good Disposition: HOME, SELF-CARE Instructions: Lymphadenopathy ([facility]) Additional Instructions: See your provider for the referral to oncology as she had recommended Copy of everything that we did today is been given to you in a yellow envelope Forms: Return to Work Referrals: IRMA FIGUEROA, DANISC [NO LOCAL MD] - Follow up tomorrow ERYN RING MD [ACTIVE STAFF] - Follow up as needed MOSHE IGNACIO MD [ACTIVE STAFF] - Follow up as needed ALEJANDRA CUELLAR MD [ACTIVE STAFF] - Follow up as needed
[2018-02-23 13:23] LABS: BACTERIA (WET MOUNT) 4+ BACTERIA SEEN; RBCS (WET MOUNT) 4+ RBCS SEEN; T.VAGINALIS (WET MOUNT) NO TRICHOMONAS SEEN; WBCS (WET MOUNT) 4+ WBCS SEEN; YEAST (WET MOUNT) NO YEAST SEEN
[2018-02-23] MEDS ORDERED: AZITHROMYCIN 250 MG TABLET PO ONE (13:26)
[2018-02-23] MEDS ORDERED: CEFTRIAXONE INJ 250 MG VIAL IM ONE (13:27)
[2018-02-23] MEDS ORDERED: ONDANSETRON 4 MG TAB.RAPDIS PO ONE (13:29)
[2018-02-23 13:32] LABS: ABSOLUTE BASOPHILS # (AUTO) 0.2 10^3/uL (0.0-0.2); ABSOLUTE EOSINOPHILS # (AUTO) 0.1 10^3/uL (0.0-0.6); ABSOLUTE LYMPHOCYTES (AUTO) 2.8 10^3/uL (0.5-4.7); ABSOLUTE MONOCYTES (AUTO) 0.5 10^3/uL (0.1-1.4); EOSINOPHILS % (AUTO) 1.2 % (0-6); HEMATOCRIT 39.5 % (36.0-47.0); HEMOGLOBIN 13.7 g/dL (12.0-15.5); LYMPHOCYTES % (AUTO) 29.1 % (13-45); MEAN CORPUSCULAR HEMOGLOBIN 29.3 pg (27.0-33.4); MEAN CORPUSCULAR HGB CONC 34.6 g/dL (32.0-36.0); MEAN CORPUSCULAR VOLUME 85 fl (80-97); MONOCYTES % (AUTO) 5.3 % (3-13); PLATELET COUNT 387 10^3/uL (150-450); RED BLOOD COUNT 4.65 10^6/uL (3.72-5.28); SEGMENTED NEUTROPHILS % (AUTO) 62.4 % (42-78); TOTAL CELLS COUNTED % (AUTO) 100 %; WHITE BLOOD COUNT 9.6 10^3/uL (4.0-10.5)
[2018-02-23 14:29] LABS: CHLAM PCR NOT DETECTED (NOT DETECT); GON PCR NOT DETECTED (NOT DETECT)
--- NOTE | 2018-02-23 15:13 | RADIOLOGY REPORT (SQ) ---
EXAM DESCRIPTION: U/S NON-OB PELVIS LTD W/O DOP COMPLETED DATE/TIME: 02/23/2018 3:00 pm REASON FOR STUDY: soft tissue mass right pelvis COMPARISON: None. TECHNIQUE: Dynamic and static grayscale images acquired of the localized site of clinical concern an d recorded on PACS. Additional selected color Doppler and spectral images recorded. SITE OF CONCERN: Right groin. LIMITATIONS: None. FINDINGS: There are 2 enlarged lymph nodes, the largest about 3.9 x 2.0 cm. No evidence of abscess. IMPRESSION: Lymphadenopathy. TECHNICAL DOCUMENTATION: JOB ID: [id number] [employer]- All Rights Reserved Reading location - IP/workstation name: [email or web address]
[2018-02-23 15:39] VITALS: BP 139/77
== END 2018-02-23 15:38 | disposition home or self-care (01) ==
LOC: ER 09:26
DX: R59.0 Localized enlarged lymph nodes (principal); E28.2 Polycystic ovarian syndrome; F17.200 Nicotine dependence, unspecified, uncomplicated; Z88.0 Allergy status to penicillin
CPT/HCPCS: 99284; 96372; 36415; 87210; 84703; 85025; 87491; 87591; 76857; S0119; J0696

== ENCOUNTER 2018-03-12 16:52 | Emergency (ER) | payer BC ==
--- NOTE | 2018-03-12 18:38 | ER Document Report ---
ED General - General Chief Complaint: Groin Pain Stated Complaint: RIGHT SIDE PAIN Time Seen by Provider: 03/12/18 18:24 Notes: The patient is a 27-year-old female who presents with worsening right groin and right lower quadrant abdominal pain started 6 days ago after she had a lymph node biopsy in [place]. Her biopsy results show a reactive lymphadenopathy and not cancer. She is still scheduled for surgery due to the pain of these lymph nodes. Patient is taking Percocet without any relief of her pain and says the pain is now worsening. Patient is also on Bactrim for UTI. She said she had a fever of 102 earlier today, but took Tylenol prior to arrival. She denies nausea, vomiting, diarrhea, constipation, dysuria, hematuria, rash or discharge from her surgical wound. TRAVEL OUTSIDE OF THE [place] IN LAST 30 DAYS: No - Related Data Allergies/Adverse Reactions: medroxyprogesterone [From Provera] Allergy (Severe, Verified 03/12/18 16:53) Difficulty breathing Penicillins Adverse Reaction (Verified 03/12/18 16:53) Past Medical History - General Information source: Patient - Social History Smoking Status: Current Every Day Smoker Chew tobacco use (# tins/day): No Frequency of alcohol use: None Drug Abuse: None Family History: Reviewed & Not Pertinent Patient has suicidal ideation: No Patient has homicidal ideation: No Renal/ Medical History: Denies: Hx Peritoneal Dialysis Past Surgical History: Reports: Hx Section - x1 - Immunizations Hx Diphtheria, Pertussis, Tetanus Vaccination: Yes Review of Systems - Review of Systems Notes: REVIEW OF SYSTEMS: CONSTITUTIONAL: -fevers, -chills EENT: -eye pain, -difficulty swallowing, -nasal congestion CARDIOVASCULAR: -chest pain, -syncope. RESPIRATORY: -cough, -SOB GASTROINTESTINAL: +RLQ abdominal pain, -nausea, -vomiting, -diarrhea GENITOURINARY: +right groin pain, -dysuria, -hematuria MUSCULOSKELETAL: -back pain, -neck pain SKIN: -rash or skin lesions. HEMATOLOGIC: -easy bruising or bleeding. LYMPHATIC: -swollen, enlarged glands. NEUROLOGICAL: -altered mental status or loss of consciousness, -headache, - neurologic symptoms PSYCHIATRIC: -anxiety, -depression. ALL OTHER SYSTEMS REVIEWED AND NEGATIVE. Physical Exam - Vital signs Vitals: Temp Pulse Resp BP Pulse Ox 99.1 F 115 H 32 H 119/91 H 100 03/12/18 17:07 03/12/18 17:07 03/12/18 17:07 03/12/18 17:07 03/12/18 17:07 - Notes Notes: PHYSICAL EXAMINATION: GENERAL: Uncomfortable. HEAD: Atraumatic, normocephalic. EYES: Pupils equal round and reactive to light, extraocular movements intact, sclera anicteric, conjunctiva are normal. ENT: nares patent, oropharynx clear without exudates. Moist mucous membranes. NECK: Normal range of motion, supple without lymphadenopathy LUNGS: Breath sounds clear to auscultation bilaterally and equal. No wheezes rales or rhonchi. Hyperventilating. HEART: Tachycardia, regular rhythm. ABDOMEN: Soft, moderate RLQ tenderness, normoactive bowel sounds. +guarding, no rebound. No masses appreciated. : (chaperoned by ANGELLA Pennington), tenderness over right labia, small surgical scar that appears well-healed without surrounding erythema or discharge EXTREMITIES: Normal range of motion, no pitting or edema. No cyanosis. NEUROLOGICAL: Cranial nerves grossly intact. Normal speech, normal gait. Normal sensory and motor exams. PSYCH: Normal mood, normal affect. SKIN: Warm, Dry, normal turgor, no rashes or lesions noted. Course - Re-evaluation Re-evalutation: 03/12/18 18:59 Pt appears uncomfortable. She has tenderness and guarding of her right lower quadrant. With recent biopsy, concern for deep infection not visible on physical exam or appendicitis. Will obtain CT scan and labs. CT scan shows known reactive Lymphadenopathy in her right inguinal canal, but no other acute abnormalities, including a normal appendix. Blood work is remarkable for a leukocytosis. Her blood gas is consistent with hyperventilation. She is already taking Percocet and will add anti-inflammatories and clindamycin for her lymphadenopathy. She has an appointment with her surgeon for removal of the lymph nodes. Instructed her to keep this appointment and given strict return precautions. - Vital Signs Vital signs: Temp Pulse Resp BP Pulse Ox 99.1 F 115 H 34 H 123/77 100 03/12/18 17:07 03/12/18 17:07 03/12/18 19:21 03/12/18 19:21 03/12/18 19:21 - Laboratory Result Diagrams: 03/12/18 19:05 03/12/18 19:05 Laboratory results interpreted by me: 03/12/18 03/12/18 19:05 19:05 WBC 16.7 H Absolute Neutrophils 13.0 H VBG pH 7.61 H VBG pCO2 22.5 L - Diagnostic Test Radiology reviewed: Image reviewed, Reports reviewed Radiology results interpreted by me: CT A/P: NO SIGNIFICANT OR ACUTE FINDING IN THE ABDOMEN OR PELVIS ON CT SCAN WITH IV CONTRAST. MILDLY PROMINENT RIGHT INGUINAL LYMPH NODES PRESUMABLY REACTIVE TO INFECTIOUS OR INFLAMMATORY PROCESS. Discharge - Discharge Clinical Impression: Lymphadenopathy, inguinal Condition: Stable Disposition: HOME, SELF-CARE Additional Instructions: Your CAT scan shows your known reactive lymph nodes, but no other concerning abnormalities. Continue the pain medications, add Naprosyn and clindamycin and continue ice packs. Follow-up with your surgeon. Lymphadenopathy You have enlargement of lymph glands, called lymphadenopathy. Lymph glands filter tissue fluids. They help to fight infection. Most of the time, enlarged lymph glands are not serious. Lymph glands may react to a viral or bacterial infection by becoming swollen and painful. When the infection goes away, the glands shrink. Sometimes a lymph gland will remain enlarged for a long time after an infection. Occasionally, a lymph gland may be overwhelmed by infection and form an abscess. If an enlarged lymph gland has signs that are suspicious for tumor, the doctor will recommend a biopsy. A suspicious gland usually is NOT painful, grows very slowly, and is rock-hard to touch. See the doctor or return if there is increasing swelling and redness, high fever, difficulty breathing, or any other change for the worse. Prescriptions: Clindamycin HCl 300 mg PO Q8H 7 Days capsule Naproxen [Naprosyn 250 mg Tablet] 500 mg PO Q12H PRN #14 tablet PRN Reason:
[2018-03-12] MEDS ORDERED: MORPHINE SULFATE 10 MG/ML INJ IV ONE (18:51)
[2018-03-12] MEDS ORDERED: CLINDAMYCIN 600 MG/D5W RTU 600 MG/50 ML RTUPB IV ONE (18:52)
[2018-03-12] MEDS ORDERED: NORMAL SALINE 1000 ML 1,000 ML IV ONE (18:52)
[2018-03-12 19:21] LABS: ABSOLUTE BASOPHILS # (AUTO) 0.1 10^3/uL (0.0-0.2); ABSOLUTE LYMPHOCYTES (AUTO) 2.4 10^3/uL (0.5-4.7); ABSOLUTE MONOCYTES (AUTO) 1.2 10^3/uL (0.1-1.4); BASOPHILS % (AUTO) 0.5 % (0-2); EOSINOPHILS % (AUTO) 0.1 % (0-6); HEMATOCRIT 39.6 % (36.0-47.0); HEMOGLOBIN 13.2 g/dL (12.0-15.5); LYMPHOCYTES % (AUTO) 14.4 % (13-45); MEAN CORPUSCULAR HEMOGLOBIN 28.5 pg (27.0-33.4); MEAN CORPUSCULAR HGB CONC 33.4 g/dL (32.0-36.0); MEAN CORPUSCULAR VOLUME 86 fl (80-97); MONOCYTES % (AUTO) 7.1 % (3-13); PLATELET COUNT 305 10^3/uL (150-450); RED BLOOD COUNT 4.64 10^6/uL (3.72-5.28); RED CELL DISTRIBUTION WIDTH 13.3 % (11.5-14.0); SEGMENTED NEUTROPHILS % (AUTO) 77.9 % (42-78); TOTAL CELLS COUNTED % (AUTO) 100 %; WHITE BLOOD COUNT 16.7 10^3/uL (4.0-10.5)
[2018-03-12 19:23] LABS: VENOUS BLOOD BASE EXCESS 2.8 mmol/L; VENOUS BLOOD HCO3 22.1 mmol/L (20-32); VENOUS BLOOD PCO2 22.5 mmHg (35-63); VENOUS BLOOD PH 7.61 (7.30-7.42)
[2018-03-12 19:39] LABS: ALANINE AMINOTRANSFERASE 34 U/L (9-52); ALBUMIN 4.4 g/dL (3.5-5.0); ALKALINE PHOSPHATASE 93 U/L (38-126); ANION GAP 13 (5-19); ASPARTATE AMINO TRANSFERASE 22 U/L (14-36); BILIRUBIN,DIRECT 0.4 mg/dL (0.0-0.4); BILIRUBIN,TOTAL 0.8 mg/dL (0.2-1.3); BLOOD UREA NITROGEN 8 mg/dL (7-20); CALCIUM 10.2 mg/dL (8.4-10.2); CARBON DIOXIDE 22 mmol/L (22-30); CHLORIDE 103 mmol/L (98-107); GLUCOSE 89 mg/dL (75-110); POTASSIUM 3.7 mmol/L (3.6-5.0); SODIUM 138.3 mmol/L (137-145); TOTAL PROTEIN 7.3 g/dL (6.3-8.2)
--- NOTE | 2018-03-12 21:45 | RADIOLOGY REPORT (SQ) ---
EXAM DESCRIPTION: CT ABD/PELVIS WITH IV ORAL COMPLETED DATE/TIME: 03/12/2018 9:37 pm REASON FOR STUDY: RLQ tenderness, right groin pain and swelling COMPARISON: None. TECHNIQUE: CT scan of the abdomen and pelvis performed using helical scanning technique with dynamic intravenous contrast injection. No oral contrast. Images reviewed with lung, soft tissue, and bone windows. Reconstructed coronal and sagittal MPR images reviewed. Delayed images for evaluation of the urinary system also acquired. All images stored on PACS. All CT scanners at this facility use dose modulation, iterative reconstruction, and/or weight based d osing when appropriate to reduce radiation dose to as low as reasonably achievable (ALARA). [facility]: Dose Right [facility]: CareDose [facility]: Dose Right [facility]: Teradose 4D [facility]: [employer] CONTRAST TYPE AND DOSE: contrast/concentration: Isovue 370.00 mg/ml; Total Contrast Delivered: 100.0 ml; Total Saline Delivered: 70.0 ml RENAL FUNCTION: None required. The patient is less than 50 years old. RADIATION DOSE: CT Rad equipment meets quality standard of care and radiation dose reduction techniq ues were employed. CTDIvol: 17.1 - 19.7 mGy. DLP: 2166 mGy-cm.. LIMITATIONS: None. FINDINGS: LOWER CHEST: No significant findings. No nodules or infiltrates. LIVER: Normal size. No masses. No dilated ducts. SPLEEN: Normal size. No focal lesions. PANCREAS: No masses. No significant calcifications. No adjacent inflammation or peripancreatic fluid collections. Pancreatic duct not dilated. GALLBLADDER: No identified stones by CT criteria. No inflammatory changes to suggest cholecystitis. ADRENAL GLANDS: No significant masses or asymmetry. RIGHT KIDNEY AND URETER: No solid masses. No significant calcifications. No hydronephrosis or hyd roureter. LEFT KIDNEY AND URETER: No solid masses. No significant calcifications. No hydronephrosis or hydr oureter. AORTA AND VESSELS: No aneurysm. No dissection. Renal arteries, SMA, celiac without stenosis. RETROPERITONEUM: No retroperitoneal adenopathy, hemorrhage or masses. BOWEL AND PERITONEAL CAVITY: No masses or inflammatory changes. No free fluid or peritoneal masses. APPENDIX: Normal. PELVIS: No mass. No free fluid. Normal bladder. ABDOMINAL WALL: Mildly prominent right inguinal lymph nodes. No masses. No hernias. BONES: No significant or acute findings. OTHER: No other significant finding. IMPRESSION: NO SIGNIFICANT OR ACUTE FINDING IN THE ABDOMEN OR PELVIS ON CT SCAN WITH IV CONTRAST. MILDLY PROMINENT RIGHT INGUINAL LYMPH NODES PRESUMABLY REACTIVE TO INFECTIOUS OR INFLAMMATORY PROCESS . TECHNICAL DOCUMENTATION: JOB ID: [id number] Quality ID # [id number]: Final reports with documentation of one or more dose reduction techniques (e.g., Au tomated exposure control, adjustment of the mA and/or kV according to patient size, use of iterative reconstruction technique) 2010 [employer]- All Rights Reserved Reading location - IP/workstation name: [email or web address]
[2018-03-12 22:57] VITALS: BP 113/62
== END 2018-03-12 22:55 | disposition home or self-care (01) ==
LOC: ER 16:52
DX: R59.0 Localized enlarged lymph nodes (principal); R10.31 Right lower quadrant pain; R50.9 Fever, unspecified; Z98.890 Other specified postprocedural states; Z79.899 Other long term (current) drug therapy; F17.200 Nicotine dependence, unspecified, uncomplicated
CPT/HCPCS: 99284; 96375; 96365; 36415; 87040; 85025; 80053; 82803; 83605; 74177; J2270; J7030